=== PATIENT | female | born 1975 ===

== ENCOUNTER → 2025-03-05 | Outpatient (CLI) | payer SELFPAY ==
[2025-03-05 18:01] LABS: Hematocrit 36.0 % (37-47); Hemoglobin 11.9 g/dL (12.0-15.0); Immature Granulocytes Count 0.020 X10^3/uL (0.0-0.0); Mean Corp Hgb Conc 33.1 g/dL (32-36); Mean Corpuscular Volume 82.2 fL (81-99); Mean Platelet Vol. 10.6 fl (6.2-12.0); NRBC Flagged by Analyzer 0 % (0-5); Platelet Count 277 K/mm3 (150-450); RBC Distribution Width CV 13.4 % (11.6-14.6); RBC Distribution Width SD 40.7 fl (35.1-43.9); Red Blood Count 4.38 M/mm3 (4.2-5.4); White Blood Count 6.9 K/mm3 (4.4-11.0)
[2025-03-05 18:31] LABS: FOLATES,SERUM (FOLIC ACID) 9.12 ng/mL (4.60-34.80)
[2025-03-05 18:38] LABS: AST(SGOT) 21 U/L (<=31); Alanine Aminotransfer ALT/SGPT 16 U/L (<=34); Albumin, Serum 4.4 g/dL (3.5-5.0); Alkaline Phosphatase 88 U/L (35-104); Anion Gap 13 (5-15); BUN 12 mg/dL (4-19); BUN/Creat Ratio 18.1 RATIO (10-20); Calcium,Total 9.2 mg/dL (7.6-11.0); Carbon Dioxide 24.7 mmol/L (21.0-32.0); Chloride 101 mmol/L (98-108); Cholesterol 272 mg/dL (<=200); Globulin 2.9 g/dL (2.2-4.2); Glucose 92 mg/dL (70-99); Low Density Lipoprotein Calc. 167 mg/dL; Potassium 3.2 mmol/L (3.3-5.1); Triglycerides 149 mg/dL; Very Low Density Lipoprotein 30 mg/dL (5-40); cholesterol:hdl ratio screen 3.60
[2025-03-05 18:48] LABS: Vitamin B12 584 pg/mL (180-914); Vitamin D,25 Hydroxy 51.6 ng/mL (30-100)
[2025-03-07 04:07] LABS: CRP, High Sensitivity 3.04 mg/L (0.00-3.00); HOMOCYSTEINE 13.4 umol/L (0.0-14.5); PROGESTERONE <0.1 ng/mL (.)
[2025-03-11 13:08] LABS: Protein C, Functional 105 % (73-180); Protein S, Funtional 132 % (63-140)
== END | disposition home or self-care (01) ==
LOC: LABSPEC 16:15
PROVIDERS: PCP Nurse Practitioner Family; Referring Provider Nurse Practitioner Family; Visit Provider Nurse Practitioner Family
DX: N32.81 Overactive bladder (principal); A69.20 Lyme disease, unspecified; G89.29 Other chronic pain; R41.89 Other symptoms and signs involving cognitive functions and awareness; R06.00 Dyspnea, unspecified; R61 Generalized hyperhidrosis; R00.2 Palpitations; F41.9 Anxiety disorder, unspecified; G47.00 Insomnia, unspecified; E28.9 Ovarian dysfunction, unspecified; D68.69 Other thrombophilia
CPT/HCPCS: 80053; 80061; 81241; 82306; 82607; 82627; 82670; 82746; 83090; 83695; 84144; 84403; 85025; 85302; 85303; 85305; 85306; 86141; 86611; 82626